=== PATIENT | male | born 2000 | race Hispanic/Latino ===

== ENCOUNTER 2022-01-22 09:30 | Emergency (ER) | payer OTHER ==
[~2022-01-22] VITALS: Ht 180.3 cm; Wt 73.1 kg
[2022-01-22 09:31] VITALS: BP 136/76
[2022-01-22 11:50] LABS: BASO % 0.3 % (0.0-1.0); EOS % 0.1 % (0.0-3.0); HEMATOCRIT 45.7 % (42.0-52.0); HEMOGLOBIN 15.2 g/dl (13.5-17.5); LYMPH # 1.3 10^3/uL (1.5-5.0); LYMPH % 10.4 % (24.0-44.0); MEAN CORPUSCULAR HEMOGLOBIN 28.4 pg (27.0-33.0); MEAN CORPUSCULAR HGB CONC 33.3 g/dl (32.0-36.5); MEAN CORPUSCULAR VOLUME 85.3 fl (80.0-96.0); MONO # 1.2 10^3/uL (0.0-0.8); MONO % 10.1 % (2.0-8.0); NEUTROPHILS # 9.5 10^3/uL (1.5-8.5); NEUTROPHILS % 78.8 % (36.0-66.0); PLATELET COUNT, AUTOMATED 284 10^3/uL (150-450); RED BLOOD COUNT 5.36 10^6/uL (4.30-6.10)
[2022-01-22 12:38] LABS: MONO REFLEX EBV COMP NEGATIVE (NEGATIVE)
[2022-01-22] MEDS ORDERED: CEPH500C PO (12:43)
[2022-01-23 14:10] LABS: EBV AB TO NUCLEAR ANTIGEN <18.0 U/mL (0.0-17.9); EBV VIRAL CAPSID AG IgG <18.0 U/mL (0.0-17.9); EBV VIRAL CAPSID AG IgM <36.0 U/mL (0.0-35.9)
== END 2022-01-22 12:46 | disposition home or self-care (01) ==
LOC: M ED 09:30
DX: J02.9 Acute pharyngitis, unspecified (principal)

== ENCOUNTER 2022-11-24 10:01 | Emergency (ER) | payer OTHER ==
[~2022-11-24] VITALS: Ht 180.3 cm; Wt 81.2 kg
[~2022-11-24 10:01] MED LIST: CEPH500C PO
[2022-11-24] MEDS ORDERED: TETRACAINE 0.5% OPHTH SOLN 4ML OS ONE (14:00)
[2022-11-24] MEDS ORDERED: FLUORESCEIN OPHTH 1MG STRIP OS ONE (14:00)
[2022-11-24 14:49] VITALS: BP 120/66
== END 2022-11-24 15:13 | disposition home or self-care (01) ==
LOC: M ED 10:01
DX: H11.32 Conjunctival hemorrhage, left eye (principal)

== ENCOUNTER 2023-05-26 09:19 | Emergency (ER) | payer OTHER ==
[~2023-05-26] VITALS: Ht 182.9 cm; Wt 82.4 kg
[2023-05-26 09:20] VITALS: BP 132/78; TEMP 97.4; O2SAT 100
[2023-05-26 10:25] LABS: RSV AMPLIFICATION NEGATIVE (NEGATIVE)
== END 2023-05-26 11:25 | disposition home or self-care (01) ==
LOC: M ED 09:19
DX: U07.1 COVID-19 (principal)

== ENCOUNTER → 2023-12-07 | Outpatient (CLI) | payer OTHER ==
[2023-12-07 13:06] LABS: BASO % 0.5 % (0.0-1.0); EOS # 0.1 10^3/uL (0.0-0.5); EOS % 1.1 % (0.0-3.0); HEMATOCRIT 44.7 % (42.0-52.0); LYMPH # 1.9 10^3/uL (1.5-5.0); LYMPH % 30.9 % (24.0-44.0); MEAN CORPUSCULAR HEMOGLOBIN 27.8 pg (27.0-33.0); MEAN CORPUSCULAR HGB CONC 33.6 g/dl (32.0-36.5); MEAN CORPUSCULAR VOLUME 82.8 fl (80.0-96.0); MONO # 0.6 10^3/uL (0.0-0.8); MONO % 10.3 % (2.0-8.0); NEUTROPHILS # 3.5 10^3/uL (1.5-8.5); PLATELET COUNT, AUTOMATED 322 10^3/uL (150-450); WHITE BLOOD COUNT 6.1 10^3/uL (4.0-10.0)
[2023-12-07 13:25] LABS: ERYTHROCYTE SEDIMENTATION RATE 17 mm/hr (0-15)
[2023-12-07 13:28] LABS: C REACTIVE PROTEIN QUANTITATIV < 0.40 MG/DL (<1.0)
[2023-12-07 13:33] LABS: RHEUMATOID FACTOR QUANT 9.8 IU/ML (<14)
[2023-12-08 14:15] LABS: ANTINUCLEAR ANTIBODIES DIRECT Negative (Negative)
== END ==
LOC: M LAB 12:19
PROVIDERS: ATTEND Physician Assistant
DX: M51.36 Other intervertebral disc degeneration, lumbar region (principal)

== ENCOUNTER 2024-02-03 13:22 | Emergency (ER) | payer OTHER ==
[~2024-02-03] VITALS: Ht 180.3 cm; Wt 87.3 kg
[2024-02-03] MEDS ORDERED: CYCL-707 PO (13:33)
[2024-02-03] MEDS ORDERED: CHOL1CAP10 PO (13:33)
[2024-02-03] MEDS ORDERED: MELO15TA28 PO (13:33)
[2024-02-03] MEDS ORDERED: VALI5TAB PO (15:01)
[2024-02-03] MEDS ORDERED: ACET325C5 PO (15:01)
[2024-02-03] MEDS ORDERED: LIDO5DIS41 TOP (15:01)
[2024-02-03] MEDS ORDERED: IBUP-1022 PO (15:01)
[2024-02-03] MEDS: LIDOCAINE 5% (LIDODERM) PATCH TD ONE (15:07)
[2024-02-03] MEDS: KETOROLAC 60MG 2ML VIAL IM ONE (15:08)
[2024-02-03] MEDS: ACETAMINOPHEN 500 MG TAB PO ONE (15:08)
[2024-02-03 15:59] VITALS: BP 142/85; TEMP 98; O2SAT 98
== END 2024-02-03 16:08 | disposition home or self-care (01) ==
LOC: M ED 13:22
DX: M54.50 Low back pain, unspecified (principal); Z79.891 Long term (current) use of opiate analgesic; Z79.899 Other long term (current) drug therapy
CPT/HCPCS: 96372; 99283; J1885

== ENCOUNTER → 2024-03-10 | Outpatient (REF) ==
[~2024-03-10] MED LIST changes: +ACET325C5 PO; +CHOL1CAP10 PO; +CYCL-707 PO; +IBUP-1022 PO; +LIDO5DIS41 TOP; +MELO15TA28 PO; +VALI5TAB PO
== END ==
LOC: M PLAIMG 09:57
PROVIDERS: ATTEND Nurse Practitioner Family
DX: M25.551 Pain in right hip (principal); M25.552 Pain in left hip; M54.2 Cervicalgia; M54.6 Pain in thoracic spine; M25.571 Pain in right ankle and joints of right foot; M25.572 Pain in left ankle and joints of left foot